=== PATIENT | female | born 1980 | race Caucasian/White ===

== ENCOUNTER 2018-07-01 17:21 | Emergency (ER) | payer OTHER ==
[~2018-07-01] VITALS: Ht 152.4 cm; Wt 127.0 kg
[~2018-07-01 17:21] MED LIST: ADULT LOW DOSE81 MG; ALBUMIN; ALBUTEROL INHAL17 GM IH; ALBUTEROL2.5 MG/0.5 INH; ALBUTEROL2.5 MG/31; AZITHROMYCIN 2250 MG PO; COUMADIN PO; MEDROLDOSEPACK PO; NAPROSYN500 MG PO; NORCO 5-325 TA1 EACH PO; PROMETHAZINE-D120 ML PO; ZANAFLEX4 M1 PO; ZPAK PO
[2018-07-01] MEDS ORDERED: ROBAXIN500 MG PO (17:49)
[2018-07-01] MEDS ORDERED: ZOFRAN ODT4 MG PO (17:49)
[2018-07-01] MEDS ORDERED: IBU600 MG PO (17:49)
[2018-07-01 17:59] VITALS: BP 138/64
== END 2018-07-01 18:02 | disposition home or self-care (01) ==
LOC: M.ERS 17:21
DX: S06.0X0A Concussion without loss of consciousness, initial encounter (principal); S16.1XXA Strain of muscle, fascia and tendon at neck level, initial encounter; S39.012A Strain of muscle, fascia and tendon of lower back, initial encounter; J45.909 Unspecified asthma, uncomplicated; F17.210 Nicotine dependence, cigarettes, uncomplicated; Z88.8 Allergy status to other drugs, medicaments and biological substances; V59.00XA Driver of pick-up truck or van injured in collision with unspecified motor vehicles in nontraffic accident, initial encounter; Y93.89 Activity, other specified; Y92.89 Other specified places as the place of occurrence of the external cause; Y99.8 Other external cause status

== ENCOUNTER 2018-08-14 21:39 | Emergency (ER) | payer OTHER ==
[~2018-08-14] VITALS: Ht 152.4 cm; Wt 127.0 kg
[~2018-08-14 21:39] MED LIST changes: +IBU600 MG PO; +ROBAXIN500 MG PO; +ZOFRAN ODT4 MG PO
[2018-08-14 23:08] VITALS: BP 130/89
== END 2018-08-14 23:08 | disposition home or self-care (01) ==
LOC: M.ERS 21:39
DX: S63.8X2A Sprain of other part of left wrist and hand, initial encounter (principal); F17.210 Nicotine dependence, cigarettes, uncomplicated; J45.909 Unspecified asthma, uncomplicated; Z87.442 Personal history of urinary calculi; M32.9 Systemic lupus erythematosus, unspecified; Z88.8 Allergy status to other drugs, medicaments and biological substances; W22.8XXA Striking against or struck by other objects, initial encounter; Y92.89 Other specified places as the place of occurrence of the external cause; Y99.0 Civilian activity done for income or pay; Y99.8 Other external cause status

== ENCOUNTER 2019-01-03 19:00 | Emergency (ER) | payer OTHER ==
[~2019-01-03] VITALS: Ht 152.4 cm; Wt 124.3 kg
[2019-01-03] MEDS ORDERED: ACETAMINOPHEN-1 EAC1 PO (21:23)
[2019-01-03 21:33] VITALS: BP 130/67
== END 2019-01-03 21:39 | disposition home or self-care (01) ==
LOC: M.ERS 19:00
DX: M25.532 Pain in left wrist (principal); M25.512 Pain in left shoulder; M32.9 Systemic lupus erythematosus, unspecified; J45.909 Unspecified asthma, uncomplicated; F17.210 Nicotine dependence, cigarettes, uncomplicated; Z88.8 Allergy status to other drugs, medicaments and biological substances; Z86.14 Personal history of Methicillin resistant Staphylococcus aureus infection; Z87.442 Personal history of urinary calculi; Z87.01 Personal history of pneumonia (recurrent)

== ENCOUNTER 2019-05-09 20:20 | Emergency (ER) | payer OTHER ==
[~2019-05-09] VITALS: Ht 170.2 cm; Wt 158.8 kg
[~2019-05-09 20:20] MED LIST changes: +ACETAMINOPHEN-1 EAC1 PO
[2019-05-09 21:00] LABS: ABSOLUTE EOSINOPHILS 0.2 thou/uL (0.0-0.7); ABSOLUTE LYMPHOCYTES 3.8 thou/uL (0.8-5.3); ABSOLUTE MONOCYTES 0.6 thou/uL (0.0-1.2); ABSOLUTE NEUTROPHILS 5.8 thou/uL (1.6-8.1); BASOPHILS 0.2 %; EOSINOPHILS 1.5 %; HEMATOCRIT 47.1 % (37.0-47.0); HEMOGLOBIN 16.3 gm/dL (12.0-15.0); LYMPHOCYTES 37.1 %; MCH 32.1 pg (26.0-34.0); MCHC 34.6 g/dL (28.0-37.0); MCV 92.9 fL (80.0-100.0); MONOCYTES 5.7 %; MPV 9.2 fl. (7.2-11.1); NUCLEATED RBCS 0 /100WBC; PLATELET COUNT* 280 thou/uL (150-400); POLYS 55.5 %; RBC 5.07 mil/uL (4.20-5.00); RDW-CV 13.4 % (10.5-14.5); WBC 10.3 thou/uL (4.0-11.0)
[2019-05-09 21:08] LABS: CALCIUM 9.6 mg/dL (8.5-10.1); CREATININE 0.7 mg/dL (0.6-1.3); POTASSIUM 3.8 mmol/L (3.5-5.1)
[2019-05-09 21:13] LABS: ALBUMIN 3.2 g/dL (3.4-5.0); TOTAL BILIRUBIN 0.2 mg/dL (<0.1-1.0); TOTAL PROTEIN 8.2 g/dL (6.4-8.2)
[2019-05-09 21:30] LABS: URINE BILIRUBIN NEGATIVE (Negative); URINE BLOOD TRACE (Negative); URINE COLOR YELLOW; URINE GLUCOSE-RANDOM NEGATIVE (Negative); URINE KETONES NEGATIVE (Negative); URINE LEUKOCYTES-REFLEX NEGATIVE (Negative); URINE NITRITE-REFLEX NEGATIVE (Negative); URINE PROTEIN 2+ (Negative); URINE SPECIFIC GRAVITY 1.015 (1.005-1.030); URINE UROBILINOGEN 0.2 E.U./dl (0.2-1.0)
[2019-05-09 21:31] LABS: URINE CLARITY HAZY
[2019-05-09 21:41] LABS: SQUAMOUS 4-10 Moderate /LPF (0-3)
[2019-05-09 21:42] LABS: BACTERIA-REFLEX 1-9 Few /HPF (None Seen); CASTS None Seen /LPF (None Seen); CRYSTALS None Seen /LPF (None Seen); MUCUS 0-3 Light strn/LPF (None Seen); URINE RBC None Seen /HPF (0-2); URINE WBC-REFLEX None Seen /HPF (0-5)
[2019-05-09 21:49] LABS: AMP/METHAMP Negative (Negative); BARBITURATES Negative (Negative); BENZODIAZEPINES Negative (Negative); COCAINE Negative (Negative); METHADONE Negative (Negative); OPIATES Negative (Negative); PCP Negative (Negative); THC Negative (Negative)
[2019-05-09] MEDS ORDERED: HYDROCODON-ACE1 EAC8 PO (23:43)
[2019-05-10] VITALS: BP 109/54
== END 2019-05-10 00:01 | disposition still patient (30) ==
LOC: M.ERS 20:20
PROVIDERS: Emergency Medicine; Physician Assistant
DX: N72 Inflammatory disease of cervix uteri (principal); J45.909 Unspecified asthma, uncomplicated; F17.210 Nicotine dependence, cigarettes, uncomplicated; Z86.14 Personal history of Methicillin resistant Staphylococcus aureus infection; Z87.442 Personal history of urinary calculi; Z88.8 Allergy status to other drugs, medicaments and biological substances

== ENCOUNTER 2020-03-24 09:52 | Emergency (ER) | payer OTHER ==
[~2020-03-24] VITALS: Ht 152.4 cm; Wt 109.8 kg
[~2020-03-24 09:52] MED LIST changes: +HYDROCODON-ACE1 EAC8 PO
[2020-03-24] MEDS ORDERED: VENTOLIN HFA 1818 GM INH (10:58)
[2020-03-24] MEDS ORDERED: ZPAK PO (10:58)
[2020-03-24 11:08] VITALS: BP 118/43
== END 2020-03-24 11:09 | disposition home or self-care (01) ==
LOC: M.ERS 09:52
DX: J18.9 Pneumonia, unspecified organism (principal); Z20.828 Contact with and (suspected) exposure to other viral communicable diseases; A18.4 Tuberculosis of skin and subcutaneous tissue; J45.909 Unspecified asthma, uncomplicated; F17.210 Nicotine dependence, cigarettes, uncomplicated; Z88.8 Allergy status to other drugs, medicaments and biological substances; Z87.442 Personal history of urinary calculi; Z86.14 Personal history of Methicillin resistant Staphylococcus aureus infection

== ENCOUNTER 2021-01-21 18:10 | Emergency (ER) | payer OTHER ==
[~2021-01-21] VITALS: Ht 152.4 cm; Wt 119.8 kg
[~2021-01-21 18:10] MED LIST changes: +VENTOLIN HFA 1818 GM INH
[2021-01-21 21:03] LABS: ABSOLUTE BASOPHILS 0.1 thou/uL (0.0-0.2); ABSOLUTE MONOCYTES 0.9 thou/uL (0.0-1.2); ABSOLUTE NEUTROPHILS 10.6 thou/uL (1.6-8.1); BASOPHILS 0.9 %; EOSINOPHILS 0.3 %; HEMATOCRIT 48.1 % (37.0-47.0); LYMPHOCYTES 14.5 %; MCH 30.8 pg (26.0-34.0); MCHC 33.2 g/dL (28.0-37.0); MCV 92.9 fL (80.0-100.0); MONOCYTES 6.5 %; MPV 8.7 fl. (7.2-11.1); NUCLEATED RBCS 0 /100WBC; PLATELET COUNT* 202 thou/uL (150-400); POLYS 77.8 %; RBC 5.18 mil/uL (4.20-5.00); RDW-CV 13.7 % (10.5-14.5); WBC 13.6 thou/uL (4.0-11.0)
[2021-01-21 21:14] LABS: CALCIUM 9.2 mg/dL (8.5-10.1); CREATININE 0.7 mg/dL (0.6-1.3); POTASSIUM 4.1 mmol/L (3.5-5.1)
[2021-01-21 21:19] LABS: ALBUMIN 2.9 g/dL (3.4-5.0); TOTAL BILIRUBIN 0.5 mg/dL (<0.1-1.0); TOTAL PROTEIN 7.7 g/dL (6.4-8.2)
[2021-01-21] MEDS ORDERED: DOXYCYCLINE 10100 MG PO (23:16)
[2021-01-21 23:23] VITALS: BP 132/65
== END 2021-01-21 23:24 | disposition home or self-care (01) ==
LOC: M.ERS 18:10
PROVIDERS: Personal Emergency Response Attendant
DX: L03.115 Cellulitis of right lower limb (principal); Z20.822 Contact with and (suspected) exposure to COVID-19; R51.9 Headache, unspecified; J45.909 Unspecified asthma, uncomplicated; F17.210 Nicotine dependence, cigarettes, uncomplicated; Z87.442 Personal history of urinary calculi; Z88.8 Allergy status to other drugs, medicaments and biological substances